=== PATIENT | female | born 1945 | race Caucasian/White ===

== ENCOUNTER 2021-08-03 08:29 | Outpatient (CLI) | payer MEDICARE | END 2021-08-03 08:30 | disposition home or self-care (01) | LOC: CSHCT 08:29 | PROVIDERS: ATTEND Thoracic Surgery (Cardiothoracic Vascular Surgery) | DX: I77.810 Thoracic aortic ectasia (principal) | CPT/HCPCS: 71250 ==

== ENCOUNTER 2024-05-13 08:53 | Outpatient (CLI) | payer MEDICARE | END 2024-05-13 08:54 | disposition home or self-care (01) | LOC: CSHCT 08:53 | PROVIDERS: ATTEND Internal Medicine Gastroenterology | DX: R10.32 Left lower quadrant pain (principal); R11.0 Nausea; Z80.0 Family history of malignant neoplasm of digestive organs | CPT/HCPCS: 74176 ==